=== PATIENT | male | born 1990 | race Two or more races ===

== ENCOUNTER 2020-01-23 18:37 | Emergency (ER) | payer BC, OTHER ==
[~2020-01-23] VITALS: Ht 177.8 cm; Wt 97.5 kg
[2020-01-23 18:57] VITALS: BP 135/81
--- NOTE | 2020-01-23 18:59 | NUR ---
patient came in to the er c/o right hand pain 03/10 x 3 weeks s/p glf. On room air, breathing evenly and unlabored. kept comfortable, will continue to monitor accordingly.
--- NOTE | 2020-01-23 18:59 | NUR ---
Arely REINA at bedside for eval.
== END 2020-01-23 20:36 | disposition home or self-care (01) ==
LOC: ER 18:37
DX: S63.591A Other specified sprain of right wrist, initial encounter (principal); W18.39XA Other fall on same level, initial encounter; Y93.89 Activity, other specified; Y92.89 Other specified places as the place of occurrence of the external cause; Y99.8 Other external cause status
CPT/HCPCS: 73110